=== PATIENT | male | born 1950 | race Caucasian/White ===

== ENCOUNTER 2023-05-31 11:07 | Day surgery (SDC) | payer OTHER, SELFPAY ==
--- NOTE | 2023-05-31 | PATH_ITS ---
[facility] Accession Number: [id number] No. of containers..01 Tissue . 01 Material submitted: . colon - RANDOM COLON BIOPSIES . 01 Diagnosis: RANDOM COLON BIOPSIES: Colonic mucosa with mildly to moderately increased intraepithelial lymphocytes. See comment. . Specimen Comments: The histologic differential diagnosis includes early lymphocytic colitis in the right clinical setting. Resolving infectious processes may show similar features and also enter the differential. Clinical correlation is recommended. STO 06/06/2023 1348 Local . 01 Electronically signed: . Gabe Tomas MD, Pathologist NPI- [id number] . 01 Gross description: . RANDOM COLON BIOPSIES: Received in formalin are multiple fragment(s) of prater, soft tissue measuring 0.1 x 0.1 x 0.1 cm to 0.3 x 0.3 x 0.2 cm submitted entirely in 1 cassette(s) /VINCENT 06/06/2023 1348 Local . 01 Pathologist provided ICD-10: K52.89 . 01 CPT . 899823 Specimen Comment: A courtesy copy of this report has been sent to [phone] Performed at: 01 [facility] [address] [place] [address], [place], [place] [id number] MD Gabe Tomas MD Phone: [phone]
[2023-05-31] MEDS: LACTATED RINGERS 1,000 ML 100 ML IV (11:55)
--- NOTE | 2023-05-31 11:58 | PM.HP.1 ---
History of Present Illness History of Present Illness Chief complaint: Colonoscopy Narrative: Screening colonoscopy and loose stools with fecal calprotectin positivity. Exam Narrative Exam Narrative: Oropharynx free of lesions Chest clear to auscultation percussion Cardiac exam reveals no S3 or murmur Assessment & Plan Assessment & Plan narrative: Diarrhea with fecal calprotectin positivity. Also need for colorectal cancer screening. Risks, benefits, alternatives have been explained.
--- NOTE | 2023-05-31 11:59 | PM.OP.COLON ---
Operative Date/Time/Diagnoses Date of procedure: 05/31/23 Pre-op diagnosis: See indication and findings Procedure & Clinicians Study performed: Colonoscopy Indications: Diarrhea with fecal calprotectin positivity. Colorectal cancer screening Surgeon: Matt Wilkins Procedure Notes Procedure in detail: After informed consent was obtained the patient was placed in left lateral decubitus position. The video colonoscope was introduced the rectum slowly advanced cecum. Preparation was good. On slow withdrawal mucosa was carefully examined. The scope was removed. The patient tolerated procedure well. Blood loss none Complications none Sedation mac Findings 1. Normal terminal ileum 2. Normal colonoscopy to cecum other than rare scattered left-sided diverticula. Random biopsies were taken Will be in touch regarding his biopsies. For screening purposes he does not need another colonoscopy for 10 years He can restart his Eliquis tonight or tomorrow
[2023-05-31 12:17] VITALS: BP 127/84; PULSE 90; RESP 16; TEMP 36.6; O2SAT 97
[2023-05-31 13:22] VITALS: BP 96/70; PULSE 95; RESP 12; TEMP 36.7; O2SAT 95
[2023-05-31 13:27] VITALS: BP 107/74; PULSE 91; RESP 12; O2SAT 97
[2023-05-31 13:32] VITALS: BP 99/75; PULSE 98; RESP 12; O2SAT 94
[2023-05-31 13:42] VITALS: BP 110/86; PULSE 80; RESP 14; TEMP 36.3; O2SAT 99
== END 2023-05-31 13:59 | disposition home or self-care (01) ==
PROVIDERS: PCP Internal Medicine; Referring Provider Internal Medicine Gastroenterology; Visit Provider Internal Medicine Gastroenterology
PROC: 0DJD8ZZ Inspection of Lower Intestinal Tract, Via Natural or Artificial Opening Endoscopic (ICD-10-PCS; CPT 45378; principal; 2023-05-31 12:30)
DX: R19.7 Diarrhea, unspecified (principal); R19.5 Other fecal abnormalities; K57.30 Diverticulosis of large intestine without perforation or abscess without bleeding
CPT/HCPCS: 45380; J2704

== ENCOUNTER 2023-07-04 08:24 | Day surgery (SDC) | payer OTHER, SELFPAY ==
[2023-06-22 12:35] VITALS: BMI 29.8
[2023-07-04] VITALS (13 sets, daily range): BP systolic 123–148; BP diastolic 84–104; PULSE 60–83; RESP 11–19; TEMP 36.2–37.2; O2SAT 87–100; BMI 29.8
[2023-07-04] MEDS: LACTATED RINGERS 1,000 ML 42 ML IV ×2 (09:05→12:43)
[2023-07-04] MEDS: VANCOMYCIN 1,000 MG/200 ML PIGGYBACK 200 MG IV (09:05)
[2023-07-04] MEDS: ACETAMINOPHEN 325 MG TABLET 975 MG PO (09:08)
--- NOTE | 2023-07-04 10:32 | PM.PREOP ---
Pre-operative Note Interval Note History & Physical reviewed/Exam performed by Physician: Yes Changes to H&P: No
--- NOTE | 2023-07-04 10:33 | PM.OP.1 ---
Operative Date/Time/Diagnoses Date of procedure: 07/04/23 Time of procedure: 11:00 Pre-op diagnosis: Severe left hip AVN Post-op diagnosis: same Procedure & Clinicians Procedure: Left total hip arthroplasty anterior approach Same procedure as scheduled: Yes Indications: The patient has had progressively worsening left hip pain with radiographic changes consistent with arthritis. Non-operative management has failed and the patient has requested total hip replacement. The risks, benefits and alternatives to surgery were discussed with the patient prior to proceeding. Risks discussed included, but were not limited to, failure to relieve pain, leg length discrepancy, dislocation, stiffness, infection, nerve damage, deep venous thrombosis, pulmonary embolism, stroke, coma, heart attack, permanent paralysis and , as well as the potential need for eventual revision of the prosthetic. Surgeon: Margot Zaragoza Chief Wellness Officer: Kris Ayers Anesthesia Type: General and Spinal Operative Notes Findings: Severe left hip AVN with collapse of the femoral head Closure Type: primary Specimen(s): none sent Prosthetic devices, grafts, tissues, transplants, or devices: Zaragoza and nephew 58 mm R3, neutral poly liner,one 6.5 mm screw, polar stem size 4 standard offset with collar, +4 size 40 Oxinium head Estimated Blood Loss (mL): 300 Blood products transfused: none Procedure in detail: The patient was brought to the operating room. Patient was carefully positioned in the supine position. Time-out was performed and antibiotics were given. Anesthesia was induced. He was positioned in the on the table in order to allow hyperextension of the hip. The left lower extremity was prepped and draped in a standard sterile fashion. An anterior left hip incision was made 1 fingerbreadth lateral to the anterior superior iliac spine and extended distally towards the greater trochanter. Dissection was carried out through skin and subcutaneous tissues. Superficial hemostasis was achieved. The fascia over the tensor fascia riki was defined and incised with a knife. Two Allis clamps were used to grasp the fascia. Tensor fascia riki was retracted laterally. A gelpi retractor was placed. Dissection was carried out down along the neck. The circumflex vessels were carefully identified and cauterized with the Aqua Mantis. A PA was used during the procedure and was essential for intraoperative retraction and safe implantation of the components. There was good visualization of the femoral neck. A Cobra was placed superior to the neck and the gluteus fibers were carefully stripped from that superior aspect of the capsule. A 2nd retractor was placed along the inferior aspect of the neck. The rectus insertion along the capsule was partially released. A 3rd retractor that was then gently placed over the rim of the acetabulum under the rectus. Capsule was carefully incised and released from the intertrochanteric line circumferentially superior to the mid sagittal line and inferiorly to the mid sagittal line until the lesser trochanter was palpable. A tag stitch was placed both in the superior and inferior limb of the capsular insertion. Along the acetabulum capsule was also released up to the mid sagittal 12:00 position. A portion of the labrum was resected. A saw was used to perform an osteotomy at the level of the intertrochanteric line and the junction of the superior femoral neck leaving approximately 1 finger breath of residual inferior neck above the lesser trochanter. A 2nd cut was made along the femoral neck at the base of the head and a napkin ring of neck was removed. Corkscrew was placed in the femoral head and the head was removed without difficulty. There was significant fragmentation of the femoral head and substantial synovitis. There was slightly more than normal bleeding but it was well controlled with the Aquamantys. Retractors were then repositioned around the acetabulum. Residual labrum was resected and additional osteophytes were removed. There was substantial destruction of the acetabulum. The initial Reamer was specifically centralized. A reamer that was 4 mm below the templated size was placed by hand in the acetabulum and it was reamed to centralize the acetabulum. It was then reamed up to 2 under the templated size and fluoroscopy was brought in to confirm the position of the reaming and depth of reaming. I reamed 1 under the anticipated size. A trial cup was placed and noted that it was appropriately sized and fluoroscopy confirmed position and depth. The component was open and inserted without difficulty fluoroscopic imaging was used to confirm that the cup had been adequately seated and was well positioned. It was further stabilized with a screw. Neutral poly liner was placed. The cup was tested and noted to be stable. Attention was then directed to the femur. The femur was gently hyperextended additional capsular release was performed as needed in order to allow adequate visualization of the proximal femur with elevation of the femur. Patient was placed in a hyperextended slightly adducted position with maximum external rotation. Box osteotome was used to check for any residual neck as well as sclerotic bone along the trochanter. [place] pepper was placed in the femur. Additional broaching was performed. Canal finder was used to determine the alignment of the canal and position. Size 1 broach was placed. The canal was then appropriately broached up to the templated size as long as there was adequate stability of the broach and serial advancement of the broach without excessive impingement. Specific attention was directed at avoiding varus attempting to direct the distal aspect of the broach more anteriorly and avoiding excessive anteversion. Trial reduction showed acceptable range of motion, good stability, no posterior impingement, jehovah's witness of leg length and appropriate lateral shuck. I also hyperflexed the hip and checked that there was no impingement anteriorly and there was good stability with flexion, adduction and internal rotation. Marcaine and Exparel were injected. The stem was placed without difficulty. Repeat trial reduction and x-ray showed acceptable overall position, length, and no evidence of the femoral fracture. Final head was placed. Wound was meticulously irrigated with normal saline. The hip was reduced and additional Exparel and Marcaine were injected. The capsule was closed with interrupted nonabsorbable sutures. The fascia of the tensor was closed with interrupted and running Vicryl. No drain was placed. Any tensor fascia riki muscle that appeared to be contused or injured which was a minimal amount was carefully resected. Capsule around the tensor was injected with Exparel and Marcaine. The skin was closed with barbed stitches for the subcutaneous tissue and skin. We also used surgical glue. The wound was dressed sterilely. Brief Betadine soak was also used and was meticulously irrigated with normal saline. Patient was transferred to recovery room in satisfactory condition. Complications: none Post-operative Condition: stable Disposition: Acute Care Plan for aftercare: The patient will be maintained on a standard total hip replacement protocol with weight bearing as tolerated and anterior hip precautions. The patient will receive Eliquis and sequential compression devices for DVT prophylaxis. The patient will be discharged home when safe for the home environment.
--- NOTE | 2023-07-04 11:00 | DI.RAD.S_ITS ---
PROCEDURE: XR HIP W PEL IF DONE LT 2V INDICATIONS: Intraoperative imaging TECHNIQUE: 4 intraoperative views of the hip were acquired. COMPARISON: [facility], [place], XR PELVIS WITH LATERAL HIP LEFT, 06/05/2023, 9:51. [facility], CR, XR HIP W PEL IF DONE LT 2V, 07/04/2023, 14:10. FINDINGS: 4 C-arm images were obtained during performance of total left hip arthroplasty. No radiographic evidence of complications.. IMPRESSION: Intraoperative imaging utilized during total left hip arthroplasty. Dictated by: Nilay Puente M.D. on 07/04/2023 at 20:42 Approved by: Nilay Puente M.D. on 07/04/2023 at 20:43
[2023-07-04] MEDS: CEFAZOLIN 2 GM/100 ML PREMIX 100 ML IV ×2 (11:02→20:15)
[2023-07-04] MEDS: TRANEXAMIC ACID 1,000 MG in SODIUM CHLORIDE 0.9% 100 ML 200 MG IV ×2 (11:25→13:37)
--- NOTE | 2023-07-04 11:49 | SUR.OPER ---
Patient supine on padded [place] table, one arm on padded arm board at <90, other arm padded and secured with tape across patient's chest, both legs secured in padded traction boots and positioned per surgeon, padded post at patient's groin, pressure points checked and padded.
[2023-07-04] MEDS: BUPIVACAINE 0.25% (PF) 30 ML, EPINEPHrine 0.15 MG INJ (11:54)
[2023-07-04] MEDS: BUPIVACAINE LIPOSOME 266 MG/20 ML VIAL INJ (11:55)
--- NOTE | 2023-07-04 13:43 | DI.RAD.S_ITS ---
PROCEDURE: XR HIP W PEL IF DONE LT 2V INDICATIONS: POST OP LEFT HIP TECHNIQUE: AP pelvis and lateral view of the hip acquired. COMPARISON: [facility], [place], XR HIP W PEL IF DONE LT 2V, 07/04/2023, 12:31. FINDINGS: Bones: Patient is status post total left hip arthroplasty, with hardware components in expected positions. The hip joint appears congruent. The visualized bony structures appear intact. Soft tissues: Overlying postoperative changes are noted. No suspicious soft tissue densities. IMPRESSION: Expected immediate postoperative appearance, status post total left hip arthroplasty. Dictated by: Nilay Puente M.D. on 07/04/2023 at 20:44 Approved by: Nilay Puente M.D. on 07/04/2023 at 20:44
[2023-07-04] MEDS: hydrOXYzine 50 MG/ML INJ IM (14:09)
[2023-07-04] MEDS: HYDROMORPHONE 1 MG INJ IV ×2 (14:09→14:16)
[2023-07-04] MEDS: OXYCODONE IR 5 MG TABLET PO (14:23)
--- NOTE | 2023-07-04 14:57 | SUR.PHASEI ---
Report called to Janie Hammer
--- NOTE | 2023-07-04 15:13 | SUR.PHASEI ---
Report called to Janie. Patient transferred to the floor by Joe, with his belongings bag and cane.
--- NOTE | 2023-07-04 15:30 | PC.NURSE ---
Pt to room 218 via bed from PACU. Pt awake, alert, and oriented x 3. Spouse eKyla is at the bedside. [place] dsg cdi. Ice pack in place. IVF infusing as ordered. SCD's on and running. Pt was given water to drink-declined offer of snack. Urinal placed next to bed for Pt's convenience. Pt denies nausea or shortness of breath-O2 sat is 99% on RA. Pt oriented to room, call light, bed controls, and tv controls. Pt agrees to call for assistance as needed and to not try to get up without assistance.
[2023-07-04] MEDS: OXYCODONE IR 10 MG TABLET PO ×2 (17:54→21:16)
[2023-07-04] MEDS: DOCUSATE 100 MG CAPSULE PO (20:15)
[2023-07-04] MEDS: ATORVASTATIN 20 MG TABLET 80 MG PO (20:15)
[2023-07-04] MEDS: ACETAMINOPHEN 325 MG TABLET 650 MG PO (22:47)
[2023-07-05] MEDS: OXYCODONE IR 10 MG TABLET PO ×2 (00:41→04:23)
[2023-07-05 02:00] VITALS: BP 116/80; PULSE 83; RESP 16; TEMP 37.3; O2SAT 98
[2023-07-05] MEDS: CEFAZOLIN 2 GM/100 ML PREMIX 100 ML IV (04:18)
[2023-07-05 05:13] LABS: Hematocrit 39.7 % (41-53); Hemoglobin 13.2 g/dL (13.5-17.5)
[2023-07-05] MEDS: PANTOPRAZOLE DR 20 MG TABLET PO (06:10)
--- NOTE | 2023-07-05 07:11 | P.DS_ITS ---
History of Present Illness History of Present Illness Date Patient Seen: 07/05/23 Time Patient Seen: 07:11 Chief complaint: Left Total Hip Arthroplasty/Anterior Approach Narrative: Operative Date/Time/Diagnoses Date of procedure: 07/04/23 Time of procedure: 11:00 Pre-op diagnosis: Severe left hip AVN Post-op diagnosis: same Procedure & Clinicians Procedure: Left total hip arthroplasty anterior approach Same procedure as scheduled: Yes Indications: The patient has had progressively worsening left hip pain with radiographic changes consistent with arthritis. Non-operative management has failed and the patient has requested total hip replacement. The risks, benefits and alternatives to surgery were discussed with the patient prior to proceeding. Risks discussed included, but were not limited to, failure to relieve pain, leg length discrepancy, dislocation, stiffness, infection, nerve damage, deep venous thrombosis, pulmonary embolism, stroke, coma, heart attack, permanent paralysis and , as well as the potential need for eventual revision of the prosthetic. Surgeon: Margot Zaragoza Yarn Salvager: Kris Ayers Anesthesia Type: General and Spinal Operative Notes Findings: Severe left hip AVN with collapse of the femoral head Closure Type: primary Specimen(s): none sent Prosthetic devices, grafts, tissues, transplants, or devices: Zaragoza and nephew 58 mm R3, neutral poly liner,one 6.5 mm screw, polar stem size 4 standard offset with collar, +4 size 40 Oxinium head Estimated Blood Loss (mL): 300 Blood products transfused: none Discharge Providers Provider Discharge Date: 07/05/23 Primary care physician: Pradeep Pittman MD Consults: 07/04/23 15:07 Consult to Discharge Planning Routine Comment: Consult to Occupational Therapy Evaluate & Treat Comment: Physician Instructions: Evaluate and treat Consult to Physical Therapy Evaluate & Treat Comment: Physician Instructions: post op HUGH protocol Discharge provider: Luba Sheridan PA-C Summary Hospital Course Discharge Diagnosis: Left hip avascular necrosis, s/p left total hip arthroplasty Hospital Course: Mr Headley's hospital course was unremarkable. On the morning of POD# 1, he was feeling well and wanted to go home. He had not yet worked w/ PT, but he had been out of bed multiple times during the night to urinate. He was eating and voiding without difficulty. His pain was well controlled w/ oral medication. Exam Vital Signs (past 8 hours): - 07/05/23 02:00 Temperature 99.2 F Pulse Rate 83 Respiratory Rate 16 Blood Pressure 116/80 Pulse Oximetry 98 Oxygen Flow Rate 0 Oxygen Delivery Method Room Air Oxygen Flow Rate 0 Narrative Exam Narrative: 4/5 strength in hip flexors, quadriceps, hamstrings; 5/5 DF, PF, EHL on left. Sensation to light touch intact throughout LLE. Calf soft, compressible, nontender. Aquacel dressing CDI. Objective Labs 07/05/23 04:09 Labs: Laboratory Results - last 24 hr 07/05/23 04:09 Hgb 13.2 L Hct 39.7 L PFSH Medical History (Updated 06/22/23 @ 13:20 by Nicole Ramirez RN) History of COVID-19 (2019) Osteoarthritis Diverticulitis Non-rheumatic aortic stenosis Chronic anticoagulation HTN (hypertension) GERD (gastroesophageal reflux disease) Arrhythmia HLD (hyperlipidemia) Cardiomyopathy Afib Surgical History (Updated 06/22/23 @ 13:10 by Nicole Ramirez RN) Hx of arthroscopy of right knee Hx of arthroscopy of left knee Hx of tonsillectomy Hx of colonoscopy History of total left knee replacement Social History household members: spouse and family Smoking Status: Never smoker alcohol intake: current Discharge Assessment & Plan Assessment and Plan Assessment: Left hip avascular necrosis, s/p left total hip arthroplasty Plan of Treatment: Discharge home after PT, restart Eliquis tonight for VTE prophylaxis, pt has postop pain meds at home, outpt PT, f/u in office in 2 weeks as scheduled. Discharge Plan Discharge Plan Patient Disposition: Home Discharge orders & Medications Discharge Orders: Discharge (Order); Ordered 07/05/23 Ordered By: Luba Sheridan Prescriptions: Continued celecoxib 200 mg capsule 200 mg PO DAILY PRN (Reason: Pain) metoprolol succinate 50 mg tablet extended release 24 hr 50 mg PO DAILY losartan 25 mg tablet 25 mg PO DAILY rosuvastatin 40 mg tablet 40 mg PO DAILY Eliquis 5 mg tablet 5 mg PO BID acetaminophen 500 mg Tablet 1,000 - 1,500 mg PO DAILY PRN (Reason: Pain) Rx Instructions: took 1000 mg this morning omeprazole 20 mg Capsule,Delayed Release(Dr/Ec) 20 mg PO DAILY Discontinued hydrocodone-acetaminophen 5-325 mg tablet 1 tab PO BID PRN (Reason: Pain (Scale Score 1-3)) Follow up/Referrals: Pardeep Pittman MD [Primary Care Provider] - Margot Zaragoza MD [Physician] - 07/18/23 1:00 pm (Follow up w/ SRINIVAS Gaspar, at [facility] office in [place].) Diet/Activity/Treatments Diet: Diet as Tolerated Activity: Weightbearing as tolerated. Anterior hip precautions. Skin/Wound/Dressing Care Report to your healthcare provider any signs of infection, such as:: chills, fever, night sweats, unusual drainage and unusual redness Dressing: May shower. Leave dressing in place until follow up in office. No bathing or otherwise soaking incision. Call the office if the dressing becomes saturated inside. Visit Report/Discharge Packet Instructions: DI for Hip Replacement, DI for Prescription Opioid Use Stand Alone Forms: Patient Portal/API, Surgery Discharge Discharge Data Primary Care Provider: Pradeep Pittman Attending Provider: Margot Zaragoza Quality VTE Deep Vein Thrombosis/Pulmonary Embolism Present on Admission: No
[2023-07-05] MEDS: METOPROLOL ER 50 MG TABLET PO (09:27)
[2023-07-05] MEDS: OXYCODONE IR 5 MG TABLET PO ×2 (09:27→13:11)
[2023-07-05] MEDS: ACETAMINOPHEN 325 MG TABLET 650 MG PO (09:27)
[2023-07-05] MEDS: DOCUSATE 100 MG CAPSULE PO (09:27)
[2023-07-05] MEDS: LOSARTAN 25 MG TABLET PO (09:28)
[2023-07-05 09:33] VITALS: BP 110/67; PULSE 94; RESP 16; TEMP 37.2; O2SAT 97
--- NOTE | 2023-07-05 10:20 | OT.IP.EVAL ---
Current Diagnoses Bilateral primary osteoarthritis of hip (07/04/23) Unilateral primary osteoarthritis, left hip (07/04/23) Surgery Performed Operation Date: 07/04/23 10:45 Actual Procedures p Total Hip Arthroplasty/Anterior Approach(Left) - Margot Zaragoza MD Past Medical History (Last Updated 06/22/23 @ 13:20 by Nicole Ramirez, RN) Afib Arrhythmia Cardiomyopathy Chronic anticoagulation Diverticulitis GERD (gastroesophageal reflux disease) History of COVID-19 (2019) HLD (hyperlipidemia) HTN (hypertension) Non-rheumatic aortic stenosis Osteoarthritis Surgical History (Last Updated 06/22/23 @ 13:10 by Nicole Ramirez RN) History of total left knee replacement Hx of arthroscopy of left knee Hx of arthroscopy of right knee Hx of colonoscopy Hx of tonsillectomy Occupational Therapy Inpatient Evaluation/Re-Eval M1 PT/OT-IP Prior Functional Status Start: 07/05/23 10:18 Freq: NEEDED Status: Active Protocol: Document 07/05/23 10:22 [facility] (Rec: 07/05/23 10:35 [facility] [id number]) Medical Review Prior Functional Status Communication Independent Mobility and Gait Per pt has been using a cane to walk. Activities of Daily Living and IADL's Pt having difficulty with shoes and socks. Social History Household Members spouse,family Living Arrangements House Number of Floors (Floors) Two Floors Number of Stairs To Enter/Railing? 3 steps with no rails to get into the house and can stay on the main level. Home Environment Standard Height Toilet,Walk in Shower Home Equipment Front Wheel Walker,Straight Cane,Raised Toilet Seat w/ Armrests,Shower Seat without Backrest,Hand Held Shower,Leg News Gathering Technician,Career Portals Teacher,Sock Aid,Grab Bars In Shower M2 OT-IP Current Condition Start: 07/05/23 10:18 Freq: Status: Active Protocol: Document 07/05/23 10:22 [facility] (Rec: 07/05/23 10:35 [facility] [id number]) Occupational Therapy Current Condition Current Condition Evaluation Date 07/05/23 Treatment Diagnosis S/ P L HUGH anterior approach Diagnosis Onset Date 07/04/23 Post Operative Precautions Anterior Hip Precautions No Hip Extension,No Hip External Rotation M3 OT- IP Subjective and Pain Start: 07/05/23 10:18 Freq: Status: Active Protocol: Document 07/05/23 10:22 [facility] (Rec: 07/05/23 10:35 [facility] [id number]) OT- Subjective Occupational Therapy Visit Type Type Initial Evaluation Visit Start Time 09:41 Visit Stop Time 10:20 Occupational Therapy Visit Comments Patient Comments Pt agreed to get up and get dressing. Patient/Caregiver Goals TO go home. OT Pain Assessment Pain When Pain Assessed During Mobility Pain Present Pain Present Pain Reported Location left hip Intensity 7 Scale Used Numeric (0 - 10) M4 OT- IP ADL's Start: 07/05/23 10:18 Freq: Status: Active Protocol: Document 07/05/23 10:22 [facility] (Rec: 07/05/23 10:35 [facility] [id number]) OT IFD-Ipby-Wlcewrs General Evaluation Self-Feeding Ability Independent OT ADL-Grooming General Evaluation Grooming Ability Standby Assistance Areas Needing Assistance Retrieving/Set-up of Grooming Items Comments OT Grooming Comments While standing at the sink. OT ADL-Oral Care General Eval Oral Care Ability Independent OT ADL-Dressing General Eval Lower Body Dressing Ability Minimal Assistance Areas Needing Assistance Underpants/Brief Comments OT Dressing Comments Educated and practiced use of the sewer pipe offbearer for dressing needs . Educated to iglesia the left side first and take out last. Emphasized not to cross his LLE and be mindful of his LLE positioning for ADL needs. OT ADL-Toileting Comments OT Toileting Comments Able to suggest to bring the FWW over the toilet or take urinal home if needed at night . OT ADL-Bathing Comments OT Bathing Comments Pt states shower at home. Went over care of dressing needs for the shower. M5 OT- IP IADL's Start: 07/05/23 10:18 Freq: Status: Active Protocol: Document 07/05/23 10:22 [facility] (Rec: 07/05/23 10:35 [facility] [id number]) OT-Instrumental Activities of Daily Living Deficits IADL Deficits Identified Deficits Home Safety Awareness Awareness of Need for Assistance at Home Good Awareness Ability to Problem Solve Emergency Able to Problem Solve Situations Medication Management Medication Management No Deficits Identified Money Management Money Management No Deficits Identified Meal Preparation Meal Preparation Caregiver Provides Assist Industrial Sociologist Industrial Sociologist Caregiver Provides Assist M6 OT- IP Functional Cognition Start: 07/05/23 10:18 Freq: Status: Active Protocol: Document 07/05/23 10:22 [facility] (Rec: 07/05/23 10:35 [facility] [id number]) Cognitive Factors Limiting Selfcare Function Cognitive Ability Level of Alertness Alert Patient Orientation Name,Age,Birthday,Month,Date, Year,Day of Week,Place, Situation Attention Span Ability Capable of Focused Attention, Capable of Sustained Attention Ability to Follow Commands Able to Follow Multi-Step Commands Memory Description No Deficits Noted Safety Awareness No Deficits Noted Cognitive Comments Cognitive Assessment Comments After initial education of hip precautions pt able to incorporate strategies for ADL and mobility needs. OT- Vision and Hearing OT- Hearing Assessment OT- Hearing Assessment WFL OT- Vision Assessment Visual Acuity Glasses For Reading Visual Attentiveness WFL Occular Pursuits WFL M7 OT- IP Mobility and Balance Start: 07/05/23 10:18 Freq: Status: Active Protocol: Document 07/05/23 10:22 [facility] (Rec: 07/05/23 10:35 [facility] [id number]) OT- Bed Mobility Assessment Supine to Sit Supine to Sit Assist Minimal Assistance OT-Transfer Assessment Sit to and From Stand Sit to and from Stand Contact Guard Assistance Transfers Transfer Ability Standby Assistance Technique Transfer Destination Bed,Chair,Toilet Transfer Technique Stand Step Pivot Devices Transfer Assistive Devices Gait Belt,Front Wheeled Walker Comments Mobility Comments PT needing use of leg hunting guide and therapist to assist to help get his LLE to the edge of the edge of the bed. When over postioning needs of LLE during sleep and for mobility needs. CGA to stand initially and vc to tighten his quads. After SBA with FWW and good safety to be able to follow his anterior precautions. OT- Balance Assessment Sitting Balance and Reactions Static Sitting Balance Ability Normal Dynamic Sitting Balance Ability Good Standing Balance and Reactions Static Standing Balance Ability Fair Dynamic Standing Balance Ability Fair M8 OT- IP Objective Assessments Start: 07/05/23 10:18 Freq: Status: Active Protocol: Document 07/05/23 10:22 [facility] (Rec: 07/05/23 10:35 [facility] [id number]) OT Gross Range of Motion Upper Extremity Range of Motion Assessment Within Functional Limits OT Strength Upper Extremity Strength Assessment Within Functional Limits M9 OT- IP Assessment and Plan Start: 07/05/23 10:18 Freq: Status: Active Protocol: Document 07/05/23 10:22 [facility] (Rec: 07/05/23 10:35 [facility] [id number]) OT Summary Assessment and Plan Potential Rehabilitation Potential Excellent Analytic Complexity at Evaluation Low Summary OT Impairments Pain,Strength,Balance, Functional Mobility,Dressing, Bathing,Shower Transfers Progress Towards Goals Progressing Toward Goals Assessment Summary Pt low complexity and doing well and will need assist for LB dressing and showering needs at home in addition to assist with his LLE for bed mobility needs. Pt has LB dressing equipment at home or to assist with his needs. Pt looking to go home with assist and attend outpt PT when medically stable. Goals Grooming Goal Independent Dressing Goal Independent,Career Portals Teacher,Sock Aid Toileting Goal Independent Bathing Goal Standby Assistance Toilet Transfer Goal Independent Shower Transfer Goal Standby Assistance Days to Meet Goals 2 Frequency of Treatment Frequency Of Treatment Once a Day Treatment Plan OT Treatment Plan ADL Training,Functional Mobility,Patient/Family Education,Discharge Planning Discharge Recommendations OT Discharge Recommendations Home with Assistance, Outpatient PT Transportation Needs at Discharge Private Vehicle
--- NOTE | 2023-07-05 11:00 | PT.IIE ---
Current Diagnoses Bilateral primary osteoarthritis of hip (07/04/23) Unilateral primary osteoarthritis, left hip (07/04/23) Surgery Performed Operation Date: 07/04/23 10:45 Actual Procedures p Total Hip Arthroplasty/Anterior Approach(Left) - Margot Zaragoza MD Surgical History (Last Updated 06/22/23 @ 13:10 by Nicole Ramirez, RN) History of total left knee replacement Hx of arthroscopy of left knee Hx of arthroscopy of right knee Hx of colonoscopy Hx of tonsillectomy Medical History (Last Updated 06/22/23 @ 13:20 by Nicole Ramirez RN) Afib Arrhythmia Cardiomyopathy Chronic anticoagulation Diverticulitis GERD (gastroesophageal reflux disease) History of COVID-19 (2019) HLD (hyperlipidemia) HTN (hypertension) Non-rheumatic aortic stenosis Osteoarthritis Physical Therapy Inpatient Evaluation/Re-Eval M1 PT/OT-IP Prior Functional Status Start: 07/05/23 12:45 Freq: NEEDED Status: Active Protocol: Document 07/05/23 11:00 AB (Rec: 07/05/23 13:05 AB [id number]) Medical Review Prior Functional Status Medical History Reviewed Yes Communication able to make needs known Mobility and Gait pt stated that he was modified independent with all mobilities and ambuation using his hurrycane. stated that he uses FWW to help him get up from a surface without arm rests Activities of Daily Living and IADL's per OT note: Pt having difficulty with shoes and socks. Social History Household Members spouse,family Living Arrangements House Number of Floors (Floors) Two Floors Number of Stairs To Enter/Railing? 3 steps with no rails to get into the house and can stay on the main level. Home Environment Standard Height Toilet,Walk in Shower Home Equipment Front Wheel Walker,Raised Toilet Seat w/Armrests,Shower Seat without Backrest,Hand Held Shower,Leg Filtering Machine Tender Helper,Ophthalmic Aide ,Sock Aid,Grab Bars In Shower Additional Social History Comment pt has his spouse and grand daughter to assist him at home pt has a hurrycane M2 PT-IP Current Condition Start: 07/05/23 12:45 Freq: NEEDED Status: Active Protocol: Document 07/05/23 11:00 AB (Rec: 07/05/23 13:05 AB [id number]) Physical Therapy Current Condition Current Condition Evaluation Date 07/05/23 Treatment Diagnosis s/p L HUGH anterior; difficulty in walking Onset Date 07/04/23 M3 PT-IP Subjective Start: 07/05/23 12:45 Freq: NEEDED Status: Active Protocol: Document 07/05/23 11:00 AB (Rec: 07/05/23 13:05 [id number]) Subjective Physical Therapy Visit Type Type Initial Evaluation Visit Start Time 11:00 Visit Stop Time 11:35 Number of RUSH SEATER Visits 0 Physical Therapy Visit Comments Patient Comments agreeable to do PT Therapy Pain Assessment Pain When Pain Assessed At Rest Pain Present Pain Present Pain Reported Location left hip Intensity 4 Scale Used increases to 6/10 with mobility Pain Management Techniques Apply Cold,Distraction, Modification of Treatment,Re- positioning,Timing of Activity with Medications M4 PT-IP Mobility and Gait Start: 07/05/23 12:45 Freq: NEEDED Status: Active Protocol: Document 07/05/23 11:00 AB (Rec: 07/05/23 13:05 [id number]) PT-Bed Mobility Assessment Supine to Sit Supine to Sit Standby Assistance Sit to Supine Sit to Supine Standby Assistance PT-Transfer Assessment Sit to and From Stand Sit to and from Stand Standby Assistance,Contact Guard Assistance,1 Person Assistance,Use of Upper Extremities Equipment Transfer Assistive Device Gait Belt,Front Wheeled Walker Orthotic/Prosthetic Devices or Brace: No Transfers Transfer Destination Bed,Chair Transfer Technique ambulated Transfer Ability Level of Assist Standby Assistance,Contact Guard Assistance,1 Person Assistance,Use of Upper Extremities Comments Mobility Comments pt sitting on the chair and agreeable to do PT. pt just finished with OT. obtained PLOF and home set up from pt. reviewed hip precautions with pt and pt recalled /2. educated pt again with hip precautions. pt completed sit to stand from chair CGA. pt presents with heavy UE use on armrests to stand with unsteady initial standing due to unsteady transition. pt instructed to sit back down on the chair. educated pt on sit<>stand techniques. pt completed sit <>stand x 3 reps CGA and max cues. pt ambulated ~ 15 ft to EOB using FWW CGA. completed sit<>supine SBA and cues for techniques. pt sat on EOB SBA . completed sit to stand from EOB CGA and ambulated to chair using FWW SBA to CGA. educated pt on stair climbing techniques. pt with problems with R knee and stated that his RLE is weaker than LLE. MMT was checked prior to mobility and BLE strength and LLE hip flexion was weaker. pt ambulated towards platform step using fWW SBA. pt then stated that he is confused on which leg should he walk forward first. instructed pt. pt with bouts of memory issues affecting safety. completed up/down platform step using hurrycane min A. attempted going up with RLE and unable but able to complete with leading up with LLE min A and max cues. completed up/down step using hurrycane min A and max cues and pt repeated x 2 sets. pt ambulated back to the chair using fWW SBA to CGA. positioned pt on the chair. informed pt regarding mobility and safety. pt then stated that he holds on the the wall for the stairs to assist him aside from using his hurrycane . call light and table placed within reach. informed pt regarding safety concerns and pt agreed to do caregiver training. stated that his family should be in between 12-1pm today. informed nurse. Gait Assessment Gait Gait Assistance Required: Standby Assistance,Contact Guard Assist Distance (Feet) 40 Able to Maintain Weight Bearing Status Yes During Gait Assistive Devices Assistive Device Gait Belt,Front Wheeled Walker Gait Deviations General Gait Pattern Antalgic Factors Limiting Gait Function Factors Limiting Gait Function Decreased Activity Tolerance, Decreased Strength,Difficulty Following Directions,Limited Range of Motion,Pain,Poor Balance,Poor Safety Awareness Stair Climbing Assessment Evaluation Level of Assist On Stairs Minimal Assistance Devices Stair Climbing Assistive Devices Tripod Cane/Hurry Cane Technique/Endurance Stair Climbing Direction Ascend and Descend Stair Climbing Technique Step to Step Number of Steps Climbed 1 Query Text: Stair Climbing Set # Repetitions (reps) 2 PT-Balance Assessment Sitting Balance and Reactions Static Sitting Balance Ability Normal Dynamic Sitting Balance Ability Good Standing Balance and Reactions Static Standing Balance Ability Fair Dynamic Standing Balance Ability Fair Device Used FWW M5 PT-IP Objective Assessments Start: 07/05/23 12:45 Freq: NEEDED Status: Active Protocol: Document 07/05/23 11:00 AB (Rec: 07/05/23 13:05 AB [id number]) Orientation Orientation/Cognition Level of Alertness Alert Orientation Name Language Function Ability No Deficits Noted Safety Awareness Decreased Safety Awareness Memory Description Short Term Impaired Gross Range of Motion Lower Extremity ROM Assessment Bilaterally Impaired Impairments B knee flexion: ~ 90 deg Strength Lower Extremity Strength Assessment Bilaterally Impaired Comments Strength Comments RLE: 3+/5 L hip flexion: 3-/5 L knee: 3 +/5 Coordination Assessment Gross Coordination Gross Coordination WNL Sensation Assessment Sensation Gross Sensation WNL Muscle Tone Muscle Tone WNL Yes M6 PT-IP Treatment Start: 07/05/23 12:45 Freq: NEEDED Status: Active Protocol: Document 07/05/23 11:00 AB (Rec: 07/05/23 13:05 [id number]) Physical Therapy Treatment Education Education Provided Precautions,Weight Bearing Status,Safety M7 PT-IP Assessment and Plan Start: 07/05/23 12:45 Freq: NEEDED Status: Active Protocol: Document 07/05/23 11:00 AB (Rec: 07/05/23 13:05 [id number]) PT Summary Assessment and Plan Potential Rehabilitation Potential Fair Status of Condition at Evaluation Evolving Summary Impairments Pain,ROM,Strength,Balance, Coordination,Sensation,Tone, Cognition,Bed Mobility, Transfers,Gait,Activity Tolerance Assessment Summary pt is a 72 y/o M s/p L HUGH anterior approach. pt with L hip anterior precautions and is WBAT. pt requiring SBA to CGA with mobility using fWW but required min A for stair climbing. pt requiring reminders for hip precautions. caregiver training set up this afternoon. will continue to assess progress. Goals Bed Mobility Goal Independent Transfer Goal Independent,Front Wheeled Walker Gait Goal Independent,Front Wheel Walker Gait Distance 200 Other Goals up/down 3 steps without rails using hurrycane + wall SBA Days to Meet Goals 5 Frequency of Treatment Frequency Of Treatment Twice a Day Treatment Plan Physical Therapy Treatment Plan Bed Mobility Training,Transfer Training,Gait Training, Therapeutic Exercise,Balance Retraining,Post Op Education, Discharge Planning,Hot or Cold Pack,Neuromuscular Re-ed, Coordination Retraining,Manual Therapy Precautions Anterior Hip Precautions No Hip Extension,No Hip External Rotation Weight Bearing Status Weight Bearing Status Weight Bear as Tolerated Allowed Weight Bearing Amount (enter % LLE WBAT or #) (%) Recommendations To Nursing Amount of Assist Needed 1 Person Assist Discharge Recommendations PT Discharge Recommendations Home with Assistance, Outpatient PT Transportation Needs at Discharge Private Vehicle
--- NOTE | 2023-07-05 11:45 | PC.NURSE ---
Patient worked with physical therapy, his will be here soon and then they will have progressive care manager training with the family. Dressing wnl, pain medication given earlier and helpful to patient.
--- NOTE | 2023-07-05 13:47 | CM.DANOTE ---
Initial DCP Assessment Note Reviewed EMR and team rounds for pt's medical status and updates. Met with pt, spouse, and his dtr at bedside to introduce self and role. Pt has been medically cleared for d/c home today, he will f/u OP for PT and meet with Ortho in 2-weeks for f/u wound check appt. They decline any need for OP resources or support at this time. Payor: Kamlesh Hernadez Attending: Dr. Zaragoza Pt is a 72 year-old M placed in a OPB following his L-total hip arthroplasty surgery. He resides independently with his in their own home in [place]. Pt has met with Ortho PT for pre-surgery assessment, and will return to the same OP PT for tx once cleared by Ortho. DCP will continue to monitor for any further evolving needs, however none are anticipated at this time. Discharge Planning/Care Management CM Discharge Assessment Start: 07/05/23 13:40 Freq: Status: Active Protocol: Document 07/05/23 13:40 DPL (Rec: 07/05/23 13:47 DPL [id number]) Discharge Planning Assessment Assigned Side Gluer BRIANNA Padgett Advance Directives? Yes Advance Directives on File No History Provided By Patient,Significant Other, Medical Record Has Patient been admitted in last 30 No days? Prior Living Arrangements House Household Members spouse,family Type of transporation used prior to Drives own vehicle admit Independent with ADL's Yes Is patient alert and oriented? Yes Caregiver for Another No Community Services used prior to Physical Therapy admission: DME Already Rented / Owned Bath Bench,Elevated Toilet Seat,FWW / Walker,Cane Patient/Family Preference OP PT Therapy Barriers to Discharge No Discharge Plan Home Community Services Physical Therapy Transportation Arrangement Spouse Referrals Initiated None needed Whiteboard Updated in Patient Room with Yes name and ext. # of Side Gluer Review Status In Process Please Provide Date Initial DC 07/05/23 Assessment Was Performed Pre-Anesthesia Assessment Start: 06/22/23 12:35 Freq: Status: Active Protocol: Document 06/22/23 12:35 CAB (Rec: 06/22/23 13:20 CAB [id number]) Pre-Anesthesia Assessment Patient Information Reviewed Via Phone Assessment Assessment Completed With Patient Diagnostic Results BMP/CMP,CBC,EKG,Urinalysis Comment Outside labs/EKG scanned Primary Care Provider Willi Mijares Comment clearance and anticoag form scanned and in surgery folder Seen Specialist in Last 12 Months Yes Specialist Seen Entry Level Java Developer,Orthopedist Primary Language Italian Disc Recordist Required No Height 190.5 cm Weight 108.409 kg Body Mass Index (BMI) 29.8 Hearing Ability Normal Visual Assist Magnifying Glass Dentition Type Teeth, Natural Present Barriers to Learning None Hx Anesthesia Reactions No Hx Family Anesthesia Reaction No Hx Malignant Hyperthermia No Hx Blood Transfusions No Hx Blood Transfusion Reaction No Anesthesia Review Requested No Glove Stitcher No alcohol intake current alcohol intake frequency 0-2 drinks per day Smoking Status Never smoker Substance Use Type does not use Pain Present Pain Reported Musculoskeletal Symptoms Abnormal Gait,Difficulty Walking,Joint Pain History of Falling (Recent or History of No ) Patient is completely paralyzed or No completely immobile Prosthesis or Orthotic Device Cane Mental Status Oriented to own ability Is patient on oxygen? No Does patient have HUMPHREY/SOB No Hx Sleep Apnea No CPAP/BIPAP use not prescribed Currently Taking a Beta Lisa Yes: Metoprolol Can You Climb a Flight of Stairs Without Yes SOB Hx Chest Pain No Hx SOB No Hx Syncope or Dizziness No Anti-Coagulant Therapy Yes: Eliquis-advised to hold 2 days prior per PCP Has a Entry Level Java Developer Yes: Visit 10/26/22 Entry Level Java Developer name Dr. Pérez @ [facility] Cardiac Testing No Hx Pacemaker/ICD No Pacemaker Rep Required? No Comment Cardiac records scanned and in surgery folder Diet Type At Home Ketogenic Dysphagia No Gastrointestinal Symptoms Reflux Urinary Catheter Present No Hx Urinary Self Catheterization No Diabetes No HgbA1C 5.9 Date 04/27/23 Hx Drug Resistant Organism No Presence of External or Internal Medical Yes: left knee prosthesis Devices Received a COVID vaccine? Yes Received all doses? Yes Marital Status Lives With spouse,family Current Living Arrangements House Number of Floors (Floors) Two Floors Support System Child/Children,Spouse Does the Patient Have Assistance After Yes Surgery Patient Discharge Plan Description Return Home Comment Pt not advised on length of stay per surgeon Feels Safe in Current Environment Yes Been Physically Hurt or Threatened By a No Person in Current Environment Do you have thoughts of harming yourself None or others? Are you currently considering suicide? No Do you have a plan to hurt yourself or No Plan others? Do You Have Any Spiritual Beliefs That No May Affect Your HC Choices? Do You Have Any Cultural Practices That No May Affect Your HC Choices? Who Can We Speak to About Patient's Care Family, friends Identifying Code for Release of Patient Declines to issue Information Health Care Proxy/Next of Kin Keyla () Health Care Proxy Emergency Contact Name Keyla () Emergency Contact Advance Directives? Yes Advance Directives on File No Requested Patient Bring Advanced Yes Directives DOS Power of Financial Management Analyst No Power of Financial Management Analyst Name Keyla () Power of Financial Management Analyst PAC Instructions Durable medical equipment, Medications to take/avoid, Nasal antibiotic,No ETOH/ petroleum product on skin DOS, NPO,Pre-op antibiotic,Pre- surgical wash,Sensory aids, Sturdy shoes/comfortable clothes,Do not bring valuables and remove jewelry
--- NOTE | 2023-07-05 14:00 | PT.IPTN ---
Current Diagnoses Bilateral primary osteoarthritis of hip (07/04/23) Unilateral primary osteoarthritis, left hip (07/04/23) Surgery Performed Operation Date: 07/04/23 10:45 Actual Procedures p Total Hip Arthroplasty/Anterior Approach(Left) - Margot Zaragoza MD Physical Therapy Treatment Note M2 PT-IP Current Condition Start: 07/05/23 12:45 Freq: NEEDED Status: Discharge Protocol: Document 07/05/23 11:00 AB (Rec: 07/05/23 13:05 AB [id number]) Physical Therapy Current Condition Current Condition Evaluation Date 07/05/23 Treatment Diagnosis s/p L HUGH anterior; difficulty in walking Onset Date 07/04/23 M3 PT-IP Subjective Start: 07/05/23 12:45 Freq: NEEDED Status: Discharge Protocol: Document 07/05/23 14:00 AB (Rec: 07/05/23 17:43 AB [id number]) Subjective Physical Therapy Visit Type Type Treatment Note Visit Start Time 14:00 Visit Stop Time 14:40 Number of BRICK SETTER OPERATOR Visits 0 M4 PT-IP Mobility and Gait Start: 07/05/23 12:45 Freq: NEEDED Status: Discharge Protocol: Document 07/05/23 14:00 AB (Rec: 07/05/23 17:43 AB [id number]) PT-Transfer Assessment Sit to and From Stand Sit to and from Stand Contact Guard Assistance,1 Person Assistance,Use of Upper Extremities Equipment Transfer Assistive Device Gait Belt,Front Wheeled Walker Orthotic/Prosthetic Devices or Brace: No Comments Mobility Comments checked on pt ~ 1pm and pt's spouse has not arrived for caregiver training. checked back on pt 2pm and spouse just came in. caregiver training conducted. educated spouse on pt's hip precautions and use of safety belt. spouse was able to put safety belt on pt but needing several tries to complete without assistance or cues from PT. educated spouse on how to assist pt. spouse assisted pt with sit to stand CGA and ambulated pt towards platform step using FWW CGA. Pt's has weak L hip flexion but has weaker R quads, thus amended stair climbing techniques to be safer for pt. pt completed up/down platform step using hurrycane + wall with spouse assisting. pt assisting his LLE to elevate up on step with use of UE and presenting with slight knee buckling on RLE. cued pt to activate R quads for steadiness prior to lifting LLE up. pt completed up/down platform step x 3 set min to mod A using wall + hurrycane and spouse was able to assist. spouse can get confused when assisting pt but pt able to direct and inform spouse on how to assist him. pt ambulated back to his room and sat on the chair. reviewed techniques and precautions with pt and spouse and spouse understood and has no further concerns. call light and table placed next to pt. Gait Assessment Gait Gait Assistance Required: Contact Guard Assist Distance (Feet) 30 Able to Maintain Weight Bearing Status Yes During Gait Assistive Devices Assistive Device Gait Belt,Front Wheeled Walker Orthotic/Prosthetic Devices or Brace: No Gait Deviations General Gait Pattern Decreased Feet Clearance Factors Limiting Gait Function Factors Limiting Gait Function Decreased Activity Tolerance, Decreased Strength,Limited Range of Motion,Pain,Poor Balance,Poor Safety Awareness Stair Climbing Assessment Evaluation Level of Assist On Stairs Minimal Assistance,Moderate Assistance Devices Stair Climbing Assistive Devices Tripod Cane/Hurry Cane Technique/Endurance Stair Climbing Direction Ascend and Descend Stair Climbing Technique Step to Step Number of Steps Climbed 1 Stair Climbing Set # Repetitions (reps) 3 Comments Stair Climbing Comments pls refer to mobility section for details M5 PT-IP Objective Assessments Start: 07/05/23 12:45 Freq: NEEDED Status: Discharge Protocol: Document 07/05/23 11:00 AB (Rec: 07/05/23 13:05 AB [id number]) Orientation Orientation/Cognition Level of Alertness Alert Orientation Name Language Function Ability No Deficits Noted Safety Awareness Decreased Safety Awareness Memory Description Short Term Impaired Gross Range of Motion Lower Extremity ROM Assessment Bilaterally Impaired Impairments B knee flexion: ~ 90 deg Strength Lower Extremity Strength Assessment Bilaterally Impaired Comments Strength Comments RLE: 3+/5 L hip flexion: 3-/5 L knee: 3 +/5 Coordination Assessment Gross Coordination Gross Coordination WNL Sensation Assessment Sensation Gross Sensation WNL Muscle Tone Muscle Tone WNL Yes M6 PT-IP Treatment Start: 07/05/23 12:45 Freq: NEEDED Status: Discharge Protocol: Document 07/05/23 14:00 AB (Rec: 07/05/23 17:43 AB [id number]) Physical Therapy Treatment Education Education Provided Precautions,Weight Bearing Status,Safety M7 PT-IP Assessment and Plan Start: 07/05/23 12:45 Freq: NEEDED Status: Discharge Protocol: Document 07/05/23 14:00 AB (Rec: 07/05/23 17:43 AB [id number]) PT Summary Assessment and Plan Potential Rehabilitation Potential Fair Summary Impairments Pain,ROM,Strength,Balance, Coordination,Sensation,Tone, Cognition,Bed Mobility, Transfers,Gait,Activity Tolerance Progress Towards Goals Slow Progress due to Activity Tolerance,Slow Progress - Other Assessment Summary caregiver training conducted and spouse was able to assist pt with mobility. pt has outpt PT set up. pt plans to go home today. Goals Bed Mobility Goal Independent Transfer Goal Independent,Front Wheeled Walker Gait Goal Independent,Front Wheel Walker Gait Distance 200 Other Goals up/down 3 steps without rails using hurrycane + wall SBA Days to Meet Goals 5 Frequency of Treatment Frequency Of Treatment Twice a Day Treatment Plan Physical Therapy Treatment Plan Bed Mobility Training,Transfer Training,Gait Training, Therapeutic Exercise,Balance Retraining,Post Op Education, Discharge Planning,Hot or Cold Pack,Neuromuscular Re-ed, Coordination Retraining,Manual Therapy Precautions Anterior Hip Precautions No Hip Extension,No Hip External Rotation Weight Bearing Status Weight Bearing Status Weight Bear as Tolerated Allowed Weight Bearing Amount (enter % LLE WBAT or #) (%) Recommendations To Nursing Amount of Assist Needed 1 Person Assist Discharge Recommendations PT Discharge Recommendations Home with Assistance, Outpatient PT Transportation Needs at Discharge Private Vehicle
== END 2023-07-05 14:30 | disposition home or self-care (01) ==
LOC: OR 08:25 → AC 08:31
PROVIDERS: PCP Internal Medicine; Referring Provider Orthopaedic Surgery; Visit Provider Orthopaedic Surgery
PROC: (CPT 27130; principal; 2023-07-04 10:45)
DX: M16.12 Unilateral primary osteoarthritis, left hip (principal)
CPT/HCPCS: 27130; 36415; 73502; 76000; 85014; 85018; 97116; 97161; 97165; 97530; 97535; C1776; C9290; J0171; J0330; J0690; J1100; J1170; J2405; J2704; J3010; J3410